=== PATIENT | female | born 1955 | race Caucasian/White ===

== ENCOUNTER → 2016-05-31 | Outpatient (CLI) | payer BC ==
[~2016-05-31] MED LIST: FEXO1TAB58 PO; FLUO20CA20 PO; FLUO40CA8 PO; FLVHFA110 INH; MONT1TAB3 PO; MULT-506 PO; OMEG10007 PO; OMEP40CA41 PO; PRLSR20 PO; PRVHFAIN INH; SIMV20TA2 PO
--- NOTE | 2016-05-31 15:36 | DIAGNOSTIC IMAGING REPORT ---
CHEST 2 VIEWS ROUTINE CLINICAL HISTORY: Cough. COMPARISON STUDY: Chest radiograph February 14, 2016. FINDINGS: Lung volumes are normal. No consolidation is identified. Pulmonary vascularity is normal. Cardiac size is normal. Mediastinal contours are unremarkable. There is no evidence of pulmonary edema. IMPRESSION: No acute cardiopulmonary findings. Electronically signed by: Tyrell Rockwell M.D. 05/31/2016 3:34 PM Dictated Date/Time: 05/31/2016 3:33 PM
== END | disposition home or self-care (01) ==
LOC: C.RAD1850 15:25
PROVIDERS: ATTEND Family Medicine
DX: R05 Cough (principal)

== ENCOUNTER → 2016-06-19 | Outpatient (CLI) | payer BC | END | disposition home or self-care (01) | LOC: C.LABBC 11:48 | PROVIDERS: ATTEND Internal Medicine Geriatric Medicine | DX: Z00.00 Encounter for general adult medical examination without abnormal findings (principal) ==

== ENCOUNTER 2016-07-13 14:52 | Emergency (ER) | payer BC ==
[~2016-07-13] VITALS: Ht 172.7 cm; Wt 70.0 kg
[~2016-07-13 14:52] MED LIST changes: -FEXO1TAB58 PO; -FLUO20CA20 PO; -FLVHFA110 INH; -OMEP40CA41 PO
[2016-07-13 15:08] VITALS: Ht 172.7 cm; Wt 70.0 kg
[2016-07-13] MEDS ORDERED: FEXO1TAB58 PO (15:52)
[2016-07-13] MEDS ORDERED: OMEP40CA41 PO (15:52)
[2016-07-13] MEDS ORDERED: FLVHFA110 INH (15:52)
[2016-07-13] MEDS ORDERED: FLUO20CA20 PO (15:52)
[2016-07-13] MEDS ORDERED: ONDANSETRON INJ 2 MG/ML 2 ML VIAL IV STA (16:29)
[2016-07-13] MEDS ORDERED: SODIUM CHLORIDE 0.9% 1000ML 1,000 ML IV ONE (16:30)
--- NOTE | 2016-07-13 16:47 | DIAGNOSTIC IMAGING REPORT ---
CHEST ONE VIEW PORTABLE CLINICAL HISTORY: Flulike symptoms. May leads. COMPARISON STUDY: 05/31/2016 FINDINGS: The cardiac and mediastinal contours are normal. There is no evidence of focal pulmonary consolidation. There is no evidence of failure. No pleural effusions are visualized.[ Slight interstitial prominence is felt related to technical factors IMPRESSION: No active disease in the chest. Electronically signed by: Ruben Baird M.D. 07/13/2016 4:45 PM Dictated Date/Time: 07/13/2016 4:44 PM
[2016-07-13 17:05] VITALS: O2SAT 100
[2016-07-13 17:17] LABS: BASO % 0.1 %; BASO ABS # 0.01 K/uL (0-0.2); COMPLETE YES; HEMATOCRIT 37.7 % (37-47); IG% 0.1 %; LYMPH % 13.9 %; LYMPH ABS # 1.17 K/uL (1.2-3.4); MEAN CELL VOLUME 84.5 fL (80-100); MEAN CORPUSCULAR HEMOGLOBIN 29.6 pg (25-34); NEUT % 82.9 %; PLATELET COUNT 218 K/uL (130-400); RED BLOOD COUNT 4.46 M/uL (4.2-5.4); WHITE BLOOD COUNT 8.42 K/uL (4.8-10.8)
[2016-07-13 17:26] LABS: PARTIAL THROMBOPLASTIN RATIO 1.1; PROTHROMBIN TIME (PATIENT) 11.2 SECONDS (9.0-12.0)
[2016-07-13 17:35] LABS: BUN/CREATININE RATIO 12.5 (10-20); CALCIUM 9.2 mg/dl (8.5-10.1); CREATININE 0.84 mg/dl (0.60-1.20); MAGNESIUM 1.8 mg/dl (1.8-2.4); POTASSIUM 3.9 mmol/L (3.5-5.1)
[2016-07-13 17:45] LABS: ALB/GLOB RATIO 1.1 (0.9-2); THYROID STIMULATING HORMONE 0.835 uIu/ml (0.300-4.500)
[2016-07-13 17:46] LABS: URINE APPEARANCE CLEAR (CLEAR); URINE BILIRUBIN NEG (NEG); URINE COLOR YELLOW; URINE NITRITE NEG (NEG); UROBILINOGEN NEG (NEG); ZZUR CULT IF INDIC CLEAN CATCH NO
[2016-07-13 17:59] LABS: MANUAL MICROSCOPIC REQUIRED? NO; REVIEW REQ? NO
[2016-07-13] MEDS ORDERED: OPTIRAY 320 IV PRN (18:00)
--- NOTE | 2016-07-13 18:16 | DIAGNOSTIC IMAGING REPORT ---
CT ANGIOGRAPHY OF THE CHEST, PULMONARY EMBOLUS PROTOCOL CLINICAL HISTORY: Recent travel to [place]. Elevated d-dimer. Generalized illness. COMPARISON STUDY: Chest radiograph May 31, 2016 and July 13, 2016. TECHNIQUE: Following IV administration of 92 mL of Optiray-320, helical axial images of the chest were obtained utilizing the pulmonary embolus protocol. Maximal intensity projections and sagittal and coronal reformats were viewed on an independent 3D workstation. IV contrast was administered without complication. CT DOSE: 278.95 mGy.cm FINDINGS: No pulmonary emboli are identified. The size of the heart is at the upper limits of normal. There is no pericardial effusion. No enlarged thoracic lymph nodes are present. No thoracic aortic dissection is present. Central airways are patent. Groundglass opacities favor atelectasis. There is no consolidation to suggest pneumonia. There is no pneumothorax or pleural effusion. Linear right middle lobe opacity is suggestive atelectasis. The bony thorax and upper abdomen are unremarkable. IMPRESSION: 1. No pulmonary emboli identified. 2. No acute intrathoracic findings. Electronically signed by: Tyrell Rockwell M.D. 07/13/2016 6:15 PM Dictated Date/Time: 07/13/2016 6:08 PM
[2016-07-13 19:15] VITALS: BP 136/76; PULSE 76; O2SAT 99
--- NOTE | 2016-07-13 23:34 | EMERGENCY ROOM VISIT NOTE ---
History First contact with patient: 16:16 Chief Complaint: ILLNESS Stated Complaint: GENERALIZED ILLNESS History of Present Illness The patient is a 61 year old female who presents to the Emergency Room with complaints of general flulike symptoms, malaise, fatigue, nausea, and vomiting for the past one day. The patient works at [employer] and travels extensively for fundraising events. She states this week she has had flights to and from [place]. She also reports a history of anxiety, and recently ran out of her [employer]. She believes some of her symptoms may be related to her anxiety. She went to the [facility], and she was referred to the emergency department for further care. The patient reports 2 episodes of emesis today. She does have some waves of nausea. The patient was able to walk to and from work today without chest pain or shortness of breath. She is without extremity pain or swelling. He has not taken anything [id number] for her symptoms and rates her overall discomfort 5/10. Review of Systems More than 10 systems were reviewed and otherwise negative with the exception of history of present illness. Past Medical/Surgical History History of anxiety and asthma Family History No pertinent family history Social History Smoking Status: Never Smoker Occupation Status: employed Current/Historical Medications Scheduled Fluoxetine Hcl (Pmdd) (Fluoxetine), 60 MG PO DAILY Fluticasone Propionate (Flovent Hfa), 2 PUFFS INH DAILY Montelukast Sodium (Singulair), 10 MG PO QAM Multivitamin (Multivitamin), 1 TAB PO QAM Omeprazole (Prilosec), 40 MG PO DAILY Simvastatin (Zocor), 20 MG PO QAM Scheduled PRN Albuterol (Ventolin Hfa), 2 PUFFS INH Q4 PRN for SOB/Wheezing Fexofenadine-Pseudoephedrine (Fide-D 24 Hour Allergy), 1 TAB PO DAILY PRN for ALLERGIC REACTION Allergies Coded Allergies: Penicillins (Verified Allergy, Unknown, UNKNOWN - HAPPENED CHILD, ) Physical Exam Vital Signs Date Time Temp Pulse Resp B/P Pulse Ox O2 Delivery O2 Flow Rate FiO2 07/13/16 19:15 76 14 136/76 99 07/13/16 17:18 70 18 140/88 100 Room Air 07/13/16 17:05 100 Room Air 07/13/16 15:21 69 18 136/88 100 Room Air 07/13/16 15:08 36.9 69 18 136/88 100 Room Air 07/13/16 14:57 36.9 67 18 147/90 98 Room Air Physical Exam VITALS: Vitals are noted on the nurse's note and reviewed by myself. Vital signs stable. GENERAL: Well-developed, well-nourished, white female who is mildly ill- appearing but nontoxic. Patient is cooperative with the examination. HEAD: Normocephalic atraumatic. EARS: External ear normal. External auditory canals clear, tympanic membranes pearly ko without erythema or effusion bilaterally. EYES: Pupils equal round and reactive to light and accommodation. Conjunctivae without injection, sclerae without icterus. Extraocular movements intact. NOSE: Patent, turbinates without inflammation or discharge. MOUTH: Mucous membranes moist. Tonsils are not enlarged. Pharynx without erythema, blood, or exudate. Uvula midline. Airway patent. NECK: Supple without nuchal rigidity. No lymphadenopathy. No thyromegaly. Cervical spine is nontender. HEART: Regular rate and rhythm without murmurs gallops or rubs. LUNGS: Clear to auscultation bilaterally without wheezes, rales or rhonchi. No retractions or accessory muscle use. ABDOMEN: Positive normal bowel sounds x 4. Soft, nontender, without masses or organomegaly. No guarding or rebound tenderness. MUSCULOSKELETAL: No muscle atrophy, erythema, or edema noted. Full range of motion without joint tenderness in all extremities. Negative Homans sign bilateral NEURO: Patient was alert and oriented to person place and time. CN II through XII grossly intact. Medical Decision & Procedures ER Provider Diagnostic Interpretation: CT ANGIOGRAPHY OF THE CHEST, PULMONARY EMBOLUS PROTOCOL CLINICAL HISTORY: Recent travel to [place]. Elevated d-dimer. Generalized illness. COMPARISON STUDY: Chest radiograph May 31, 2016 and July 13, 2016. TECHNIQUE: Following IV administration of 92 mL of Optiray-320, helical axial images of the chest were obtained utilizing the pulmonary embolus protocol. Maximal intensity projections and sagittal and coronal reformats were viewed on an independent 3D workstation. IV contrast was administered without complication. CT DOSE: 278.95 mGy.cm FINDINGS: No pulmonary emboli are identified. The size of the heart is at the upper limits of normal. There is no pericardial effusion. No enlarged thoracic lymph nodes are present. No thoracic aortic dissection is present. Central airways are patent. Groundglass opacities favor atelectasis. There is no consolidation to suggest pneumonia. There is no pneumothorax or pleural effusion. Linear right middle lobe opacity is suggestive atelectasis. The bony thorax and upper abdomen are unremarkable. IMPRESSION: 1. No pulmonary emboli identified. 2. No acute intrathoracic findings. CHEST ONE VIEW PORTABLE CLINICAL HISTORY: Flulike symptoms. May leads. COMPARISON STUDY: 05/31/2016 FINDINGS: The cardiac and mediastinal contours are normal. There is no evidence of focal pulmonary consolidation. There is no evidence of failure. No pleural effusions are visualized.[ Slight interstitial prominence is felt related to technical factors IMPRESSION: No active disease in the chest. Laboratory Results 07/13/16 17:03 Red Blood Count 4.46, Mean Corpuscular Volume 84.5, Mean Corpuscular Hemoglobin 29.6, Mean Corpuscular Hemoglobin Concent 35.0, Mean Platelet Volume 10.0, Neutrophils (%) (Auto) 82.9, Lymphocytes (%) (Auto) 13.9, Monocytes (%) (Auto) 3.0, Eosinophils (%) (Auto) 0.0, Basophils (%) (Auto) 0.1, Neutrophils # (Auto) 6.98, Lymphocytes # (Auto) 1.17, Monocytes # (Auto) 0.25, Eosinophils # (Auto) 0.00, Basophils # (Auto) 0.01 07/13/16 17:03 Test 07/13/16 17:03 07/13/16 17:14 07/13/16 17:25 White Blood Count 8.42 K/uL (4.8-10.8) Red Blood Count 4.46 M/uL (4.2-5.4) Hemoglobin 13.2 g/dL (12.0-16.0) Hematocrit 37.7 % (37-47) Mean Corpuscular Volume 84.5 fL (80-100) Mean Corpuscular Hemoglobin 29.6 pg (25-34) Mean Corpuscular Hemoglobin Concent 35.0 g/dl (32-36) Platelet Count 218 K/uL (130-400) Mean Platelet Volume 10.0 fL (7.4-10.4) Neutrophils (%) (Auto) 82.9 % Lymphocytes (%) (Auto) 13.9 % Monocytes (%) (Auto) 3.0 % Eosinophils (%) (Auto) 0.0 % Basophils (%) (Auto) 0.1 % Neutrophils # (Auto) 6.98 K/uL (1.4-6.5) Lymphocytes # (Auto) 1.17 K/uL (1.2-3.4) Monocytes # (Auto) 0.25 K/uL (0.11-0.59) Eosinophils # (Auto) 0.00 K/uL (0-0.5) Basophils # (Auto) 0.01 K/uL (0-0.2) RDW Standard Deviation 45.0 fL (36.4-46.3) RDW Coefficient of Variation 14.5 % (11.5-14.5) Immature Granulocyte % (Auto) 0.1 % Immature Granulocyte # (Auto) 0.01 K/uL (0.00-0.02) Prothrombin Time 11.2 SECONDS (9.0-12.0) Prothromb Time International Ratio 1.0 (0.9-1.1) Activated Partial Thromboplast Time 29.6 SECONDS (21.0-31.0) Partial Thromboplastin Ratio 1.1 Anion Gap 10.0 mmol/L (3-11) Est Creatinine Clear Calc Drug Dose 71.8 ml/min Estimated GFR () 87.6 Estimated GFR (Non- 75.5 BUN/Creatinine Ratio 12.5 (10-20) Calcium Level 9.2 mg/dl (8.5-10.1) Magnesium Level 1.8 mg/dl (1.8-2.4) Total Bilirubin 0.4 mg/dl (0.2-1) Aspartate Amino Transf (AST/SGOT) 30 U/L (15-37) Alanine Aminotransferase (ALT/SGPT) 24 U/L (12-78) Alkaline Phosphatase 60 U/L (45-117) Total Protein 7.6 gm/dl (6.4-8.2) Albumin 4.0 gm/dl (3.4-5.0) Globulin 3.6 gm/dl (2.5-4.0) Albumin/Globulin Ratio 1.1 (0.9-2) Thyroid Stimulating Hormone (TSH) 0.835 uIu/ml (0.300-4.500) Influenza Type A Antigen Neg for Influ A (NEG) Influenza Type B Antigen Neg for Influ B (NEG) Bedside D-Dimer > 450 ng/mlFEU (0-450) Bedside Troponin I 0.000 ng/ml (0-0.045) Urine Color YELLOW Urine Appearance CLEAR (CLEAR) Urine pH 6.0 (4.5-7.5) Urine Specific Fenton 1.000 (1.000-1.030) Urine Protein NEG (NEG) Urine Glucose (UA) NEG (NEG) Urine Ketones NEG (NEG) Urine Occult Blood NEG (NEG) Urine Nitrite NEG (NEG) Urine Bilirubin NEG (NEG) Urine Urobilinogen NEG (NEG) Urine Leukocyte Esterase NEG (NEG) Medications Administered Medications (Trade) Dose Ordered Sig/Toni Route Start Time Stop Time Status Last Admin Dose Admin Sodium Chloride (Nss 1000ml) 1,000 ml @ 999 mls/hr Q1H1M ONCE IV 07/13/16 16:30 07/13/16 17:30 DC 07/13/16 17:15 999 MLS/HR Ondansetron HCl (Zofran Inj) 4 mg NOW STAT IV 07/13/16 16:29 07/13/16 16:31 DC 07/13/16 17:15 4 MG ED Course Physical exam and history were performed. Nursing notes and EMR were reviewed. Patient appears to have flulike symptoms for the past one day. The patient has a history of recent travel across the country. She is quite anxious with her symptoms. She is not having distinct chest pain or shortness of breath, but does not feel well. IV access was established and labs were obtained. EKG was normal sinus rhythm at 80 bpm with a slightly prolonged QT. There is no ST elevation. She was placed on the production leader. The patient was hydrated and medicated as above. The patient's blood work is as above and was reviewed. She does not have a significantly elevated white blood cell count, anemia, bandemia, or gross electrolyte imbalance. Troponin 1 is negative. Urine is without signs of infection. Lipase and transaminases are nondiagnostic. If once swabs are negative. The patient's d-dimer was elevated, and because of this and her travel history I did elect for a CT angiogram. CT scan does not show evidence of acute pulmonary embolism or other significant process. Overall the patient felt much better after hydration and antibiotics. She likely has a viral infection that is causing her to feel ill. The patient does seem stable for discharge home, and I recommended that she have close follow-up with her primary care physician. She was otherwise certainly invited back to the ER with any new, worsening, or concerning symptoms. She voiced understanding of this plan and rated her discomfort a 0/10 at the time of departure. The chart was completed utilizing [employer] Speech Voice Recognition Software. Grammatical errors, random word insertions, pronoun errors, and incomplete sentences are an occasional consequence of this system due to software limitations, ambient noise, and hardware issues. Any formal questions or concerns about the content, text, or information contained within the body of this dictation should be directly addressed to the provider for clarification. . Medical Decision Differential diagnosis: Etiologies such as metabolic, infection, hypo/hyperglycemia, electrolyte abnormalities, cardiac sources, intracerebral event, toxicologic, neurologic, as well as others were entertained. Impression Primary Impression: Influenza-like illness Additional Impression: Malaise and fatigue Departure Information Referrals Delonte Molina M.D. (PCP) Patient Instructions My [facility] Health Problem Qualifiers
== END 2016-07-13 19:16 | disposition home or self-care (01) ==
LOC: EDBD 14:52 → C.EDB 14:54
DX: R69 Illness, unspecified (principal); R53.81 Other malaise; R53.83 Other fatigue; J45.909 Unspecified asthma, uncomplicated; F41.9 Anxiety disorder, unspecified; Z88.0 Allergy status to penicillin

== ENCOUNTER → 2017-06-10 | Outpatient (CLI) | payer OTHER ==
[~2017-06-10] MED LIST changes: +FEXO1TAB58 PO; +FLUO20CA20 PO; -FLUO40CA8 PO; +FLVHFA110 INH; -OMEG10007 PO; +OMEP40CA41 PO; -PRLSR20 PO
[2017-06-10 11:06] LABS: BASO % 0.8 %; BASO ABS # 0.04 K/uL (0-0.2); EOS % 3.2 %; EOS ABS # 0.15 K/uL (0-0.5); HEMATOCRIT 39.5 % (37-47); HEMOGLOBIN 12.9 g/dL (12.0-16.0); LYMPH % 30.6 %; LYMPH ABS # 1.45 K/uL (1.2-3.4); MEAN CELL VOLUME 88.6 fL (80-100); MEAN CORPUSCULAR HEMOGLOBIN 28.9 pg (25-34); MEAN CORPUSCULAR HGB CONC 32.7 g/dl (32-36); MEAN PLATELET VOLUME 10.6 fL (7.4-10.4); MONO % 11.2 %; MONO ABS # 0.53 K/uL (0.11-0.59); NEUT % 54.2 %; NEUT ABS # 2.57 K/uL (1.4-6.5); PLATELET COUNT 234 K/uL (130-400); RED CELL DISTRIBUTION WIDTH CV 14.7 % (11.5-14.5); RED CELL DISTRIBUTION WIDTH SD 47.5 fL (36.4-46.3); WHITE BLOOD COUNT 4.74 K/uL (4.8-10.8)
[2017-06-10 11:48] LABS: ALBUMIN 3.6 gm/dl (3.4-5.0); ALT/SGPT 26 U/L (12-78); AST/SGOT 27 U/L (15-37); BLOOD UREA NITROGEN 23 mg/dl (7-18); CALCIUM 9.1 mg/dl (8.5-10.1); CARBON DIOXIDE 28 mmol/L (21-32); CHOLESTEROL 197 mg/dl (0-200); CREATININE 0.89 mg/dl (0.60-1.20); GLUCOSE 93 mg/dl (70-99); POTASSIUM 4.4 mmol/L (3.5-5.1); SODIUM 142 mmol/L (136-145)
[2017-06-10 11:58] LABS: ALKALINE PHOSPHATASE 60 U/L (45-117); LDL CHOLESTEROL CALCULATED 123 mg/dl; TOTAL PROTEIN 7.2 gm/dl (6.4-8.2)
== END | disposition home or self-care (01) ==
LOC: C.LABBC 09:04
PROVIDERS: ATTEND Internal Medicine Geriatric Medicine
DX: E78.5 Hyperlipidemia, unspecified (principal); F41.0 Panic disorder [episodic paroxysmal anxiety]; J45.909 Unspecified asthma, uncomplicated